=== PATIENT | male | born 1960 | race Caucasian/White ===

== ENCOUNTER 2016-08-13 16:09 | Inpatient (IN) | payer BC ==
--- NOTE | ~2016-08-13 | DS ---
Discharge Summary [facility] [address] [facility] [place]. [address] NAME: LARS BYRD : 62 STATUS : DIS IN PAT#: [id number] AGE: 56 ADM/REG DATE : 08/13/16 MR#: [id number] REPORT SERV DATE: 08/19/16 DICTATED BY: DARIUS BRIGGS DATE: 08/18/16 REPORT STATUS : Draft TRANSCRIBED BY: MODL DATE: 08/18/16 ADMISSION DATE: 08/13/2016 DISCHARGE DATE: 08/18/2016 DISCHARGE DIAGNOSES: 1. Community-acquired pneumonia. 2. Acute hypoxic respiratory failure. 3. New-onset type 2 diabetes mellitus. 4. Hypertension. 5. Hyperlipidemia. 6. Tobacco abuse. CONSULTANTS DURING THIS HOSPITALIZATION: None. INVASIVE PROCEDURES DONE DURING THIS HOSPITALIZATION: None. BRIEF HISTORY OF PRESENT ILLNESS: The patient is a 56-year-old white male, presented with hypoxic respiratory failure and hypoxemia in the emergency room found to have pneumonia, so he was admitted. For detailed history and physical exam, please see note dictated by Dr. Milton Kendrick on 08/13/2016. HOSPITAL COURSE: After being admitted to the hospital, this patient was placed on antibiotics, steroids, and aggressive nebulizing treatments. Urine antigens for strep and Legionella were checked and blood cultures were done, which all remained negative. His procalcitonin level was slightly elevated. He did have an elevated white count on admission of about 26,000. We continued to monitor him, he had a slightly elevated troponin of 0.09 which has since come down to 0.07. This was thought due to demand ischemia and high oxygen requirement. He was noted to have an elevated glucose, so a hemoglobin A1c was checked which showed that he had type 2 diabetes mellitus and hemoglobin A1c was 8.9. informal waiter/waitress saw the patient in consultation during this hospitalization as well. Since he continued to improve, we started to wean his oxygen and in 5 days his oxygen has been weaned off. He is saturating 95% on room air. The patient feels well. He still has complaints of some right-sided chest pain that is attributed to pleuritic chest pain which responds to pain medications. He is fully ambulatory at this time and doing well enough that he could be discharged in the home setting. DISCHARGE DISPOSITION: Home. DISCHARGE ACTIVITY: No heavy lifting and no outside work, prevent exposure to pollen and dust at this time. DISCHARGE DIET: 1800-calorie [employer] diet. DISCHARGE MEDICATIONS: Omnicef 300 mg p.o. once daily, Hugoton 5/325 one tablet every six hours p.r.n. for pleuritic type chest pain, Symbicort 160/4.25 two puffs twice daily, prednisone 10 mg p.o. daily for two more days, metformin 500 mg twice daily, Plavix 75 mg Discharge Summary [address] [address] NAME: LARS BYRD : 62 STATUS : DIS IN PAT#: [id number] AGE: 56 ADM/REG DATE : 08/13/16 MR#: [id number] REPORT SERV DATE: 08/19/16 DICTATED BY: DARIUS BRIGGS DATE: 08/18/16 REPORT STATUS : Draft TRANSCRIBED BY: CHELI DATE: 08/18/16 once daily, hydrochlorothiazide 25 mg once at bedtime, Lopressor 25 mg once at bedtime, Protonix 20 mg once at bedtime, pravastatin 40 mg once daily, ramipril 5 mg once at bedtime, ProAir two puffs every four hours p.r.n., Tylenol 1000 mg twice daily p.r.n., Flexeril 10 mg three times daily p.r.n. DISCHARGE FOLLOWUP: With Dr. Cheatham in [place], [place]. More than 30 minutes spent planning this patient's discharge, reconciling medications, writing prescriptions, discussing hospital care, and followup with the patient and documenting this discharge. ADDENDUM: This patient since had a slightly elevated troponin. Once he completely recovers from his pneumonia, a nuclear cardiac stress test is advised in the outpatient setting. NATALIE/CHELI Darius Briggs M.D. / [id number] CC: Darius Briggs M.D.
--- NOTE | ~2016-08-13 | HP ---
History And Physical [place] [id number] [facility]. [address] NAME: LARS BYRD : 62 STATUS : ADM IN PAT#: [id number] AGE: 56 ADM/REG DATE : 08/13/16 MR#: [id number] REPORT SERV DATE: 08/14/16 DICTATED BY: MILTON KENDRICK DATE: 08/13/16 REPORT STATUS : Draft TRANSCRIBED BY: MODL DATE: 08/13/16 DATE OF ADMISSION: 08/13/2016 CHIEF COMPLAINT: Cough and chest pain. HISTORY OF PRESENT ILLNESS: This is a 56-year-old gentleman with history of hypertension, coronary artery disease, smoking and COPD presenting with cough and chest pain. The patient apparently has been having cough with right-sided chest pain for about a week. The cough itself was nonproductive. The patient did not have any fevers or chills, but he did develop worsening shortness of breath. 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 Apparently, at the [place] ER everything looked okay and the patient was discharged home, with a diagnosis of pulled muscle. The patient then saw his PCP today, and the patient was immediately directed to the ER, because he did not look good. In the ER, patient was found to be quite tachycardic, with heart rate of 126. The patient was also quite hypoxic, with oxygen saturation of 82% on room air, on initial presentation. Initial lab evaluation revealed benign electrolytes, but his white blood cell count was 26.7, with 4% bands. His ABG confirmed the hypoxic respiratory failure on room air. Chest x-ray revealed basilar infiltrates which was again confirmed with a CT angiogram of the chest. Internal Medicine consultation was requested for admission of the patient for further evaluation and care. REVIEW OF SYSTEMS: The patient denies any fevers or chills. Also, 14-point review of systems reviewed and negative other than mentioned above. MEDICATIONS: 1. Tylenol 6657-0875 mg p.o. b.i.d. for pain. 2. ProAir two puffs inhaled q.4h p.r.n. 3. Z-Case. 4. Plavix 75 mg p.o. at bedtime. 5. Flexeril 10 mg p.o. three times daily p.r.n. 6. Hydrochlorothiazide 25 mg p.o. at bedtime. 7. [place] 5/325 one tab p.o. q.6 hours p.r.n. 8. Lopressor 25 mg p.o. at bedtime. 9. Protonix 20 mg p.o. at bedtime. 10.Pravachol 40 mg p.o. at bedtime. 11.Altace 5 mg p.o. at bedtime. 12.Tussionex 5 mL p.o. q.12 hours p.r.n. ALLERGIES: 1. AMOXICILLIN. 2. NSAIDS. History And Physical [address] [address] NAME: LARS BYRD : 62 STATUS : ADM IN [facility]#: [id number] AGE: 56 ADM/REG DATE : 08/13/16 MR#: [id number] REPORT SERV DATE: 08/14/16 DICTATED BY: MILTON KENDRICK DATE: 08/13/16 REPORT STATUS : Draft TRANSCRIBED BY: CHELI DATE: 08/13/16 PAST MEDICAL HISTORY: 1. Hypertension. 2. Coronary artery disease with a heart attack in the past and one coronary artery stent. 3. COPD. PAST SURGICAL HISTORY: 1. Cholecystectomy. 2. Appendectomy. FAMILY HISTORY: 1. The patient's father had unknown type cancer. 2. The patient's mother and brothers had CVAs. SOCIAL HISTORY: The patient is a smoker. He smokes about two packs per day. The patient otherwise does not drink alcohol or use any illicit drugs. The patient is here in the ER, accompanied by his girlfriend. PHYSICAL EXAMINATION: VITAL SIGNS: Temperature 99.3, blood pressure 141/76, pulse 126 respiratory rate is 20, and saturating greater than 95%, now on 15 L of oxygen high flow. NEUROLOGICAL: The patient is alert, but slightly lethargic. The patient has no focal neurologic deficits. GENERAL: The patient is awake, does not appear to be in acute distress, and he is cooperative. NECK: No JVD. No lymphadenopathy. Normal thyroid. CHEST: No midline sternotomy scar and no tenderness to palpation. LUNGS: The patient has diffuse rhonchi as well as wheezes. The patient is on 15 L of oxygen per high-flow nasal cannula and he has normal respiratory effort with that. CARDIOVASCULAR: The patient is quite tachycardic, but otherwise, no murmurs, rubs, or gallops, and PMI is nondisplaced. ABDOMEN: Soft, nontender, with active bowel sounds and no organomegaly. EXTREMITIES: No edema. Normal distal pulses. No calf tenderness. SKIN: Clean, dry, warm, and intact. LABORATORY DATA: Sodium is 137, potassium 4.1, chloride 97, BUN 14, creatinine 1.05 glucose 216, calcium 8.4, magnesium 1.8. White blood cell count is 26.7, with 4% bands. Hemoglobin 14.6, platelets 232, INR is 1.0, lactate is 1.3, troponin is 0.09. ABG; pH is 7.35, pCO2 62, PO2 44 and oxygen saturation of 82% on room air. Chest x-ray is personally interpreted and it shows bibasilar infiltrates. CT angiogram showed multifocal pneumonia bilaterally. Procalcitonin level was 0.36. ASSESSMENT: This is a 56-year-old gentleman with history of hypertension, COPD, coronary artery disease, and smoking presenting with a community-acquired pneumonia with sepsis. History And Physical [address] [address] NAME: LARS BYRD : 62 STATUS : ADM IN [facility]#: [id number] AGE: 56 ADM/REG DATE : 08/13/16 MR#: [id number] REPORT SERV DATE: 08/14/16 DICTATED BY: MILTON KENDRICK DATE: 08/13/16 REPORT STATUS : Draft TRANSCRIBED BY: MODReji DATE: 08/13/16 1. Community-acquired pneumonia with sepsis. 2. Acute hypoxic respiratory failure secondary to above. 3. Smoking. 4. Baseline chronic obstructive pulmonary disease. 5. Hypertension. 6. Coronary artery disease. PLAN: My plan is to admit the patient under telemetry monitoring. The patient will be given oxygen support and bronchodilator therapy. The patient will be treated with IV antibiotics and steroids. I will follow CBC with diff, procalcitonin level, as well as checking urinary antigen and for strep and Legionella. I will also check blood cultures, and sputum cultures. Otherwise, for the rest of stable past medical conditions, including hypertension, coronary disease, I will continue home medications. For smoking cessation, counseling was provided. Standard DVT prophylaxis. The patient is full code at this time. YSC/MODL Milton Kendrick MD / [id number]
[2016-08-13 16:07] LABS: BE (BASE EXCESS) 5.5 MEQ/L (0 +/- 2.5); CARBOXYHEMOGLOBIN 7.3 % (0-3); HCO3 (ACTUAL BICARBONATE) 33.3 MEQ/L (23-27); HEMOBLOGIN CONTENT 15.1 G/DL (14-18); INSTRUMENT SERIAL # 8087; METHEMOGLOBIN 0.3 % (0-3); PCO2 (CO2 TENSION) 62 MMHG (35-45); PO2 (O2 TENSION) 44 MMHG (79-93); SAMPLE Arterial; pH 7.35 (7.37-7.43)
[2016-08-13 16:08] LABS: ALLENS TEST Pos
[~2016-08-13 16:09] MED LIST: ALTA5 PO; DURA100 TOP; HCTZ25B PO; IMDUR30 PO; ISORDIL10; NITROSTAT0.4 MG SL; PERCOCET1 TA4 PO; PLAVIX PO; PRAVACHOL40 MG PO; PROAIR HFA INH; PROTONIX PO; TOPXL25 PO; VIAGRA50 MG PO
[2016-08-13] MEDS ORDERED: HYDROCHLOROT25 MG PO (16:18)
[2016-08-13] MEDS ORDERED: PRAVACHOL40 MG PO (16:18)
[2016-08-13] MEDS ORDERED: PLAVIX PO (16:18)
[2016-08-13] MEDS ORDERED: ALTA5 PO (16:19)
[2016-08-13] MEDS ORDERED: LOP25 PO (16:19)
[2016-08-13] MEDS ORDERED: ACET500CAP PO (16:20)
[2016-08-13] MEDS ORDERED: PROAIR HFA INH (16:20)
[2016-08-13] MEDS ORDERED: PROTONIX20 MG PO (16:20)
[2016-08-13] MEDS ORDERED: Z-PAK PO (16:20)
[2016-08-13] MEDS ORDERED: FLEX PO (16:28)
[2016-08-13] MEDS ORDERED: NORCO1 TA1 PO (16:28)
[2016-08-13] MEDS ORDERED: TUSSINEX PO (16:29)
[2016-08-13 17:13] LABS: BASOPHILS 0.1 %; BASOPHILS ABSOLUTE 0.02 10/3/uL (0.0-0.16); EOSINOPHILS 0 %; EOSINOPHILS ABSOLUTE 0.01 10/3/uL (0.0-0.53); HEMATOCRIT 43.1 % (40.0-51.0); HEMOGLOBIN 14.6 g/dL (13.6-17.8); IMMATURE GRANULOCYTES 0.5 %; LYMPHOCYTES 7.7 %; LYMPHOCYTES ABSOLUTE 2.04 10/3/uL (0.67-4.30); MEAN CORPUS HGB CONC 33.9 g/dL (32.0-36.0); MEAN CORPUSCULAR HEMOGLOB 31.1 pg (26.0-34.0); MEAN CORPUSCULAR VOLUME 91.7 fL (80-100); MEAN PLATELET VOLUME 9.9 fL (9.2-13.0); MONOCYTES 8.2 %; MONOCYTES ABSOLUTE 2.19 10/3/uL (0.21-1.20); NEUTROPHILS 83.5 %; NEUTROPHILS ABSOLUTE 22.28 10/3/uL (2.02-8.40); PLATELET COUNT 232 10/3/uL (150-400); RBC DISTRIBUTION WIDTH 12.8 % (12.0-16.0)
[2016-08-13 17:14] LABS: ER CBC TAT 0 Hrs 07 Mins; WHITE BLOOD CELLS 26.7 10/3/uL (4.5-10.5)
[2016-08-13 17:16] LABS: IMMATURE GRANULOCYTES ABSOLUTE 0.12 10/3/uL (0.0-0.11); MANUAL DIFF NO %
[2016-08-13 17:20] LABS: PARTIAL THROMBO TIME 24.6 SEC (22.5-37.2); PROTIME (NOT ORD) 12.7 SEC (12.0-14.5)
[2016-08-13 17:30] LABS: CALCIUM, SERUM 8.4 MG/DL (8.5-10.4); CHLORIDE, SERUM 97 MMOL/L (96-112); CO2 (CARBON DIOXIDE) 34 MMOL/L (24-34); CREATININE 1.05 MG/DL (0.70-1.30); GFR AFRICAN AMERICAN 92 ML/MIN (>=60); GFR NON AFRICAN AMERICAN 80 ML/MIN (>=60); LACTATE 1.3 MMOL/L (0.3-2.4); POTASSIUM, SERUM 4.1 MMOL/L (3.5-5.3); SODIUM, SERUM 137 MMOL/L (135-148)
[2016-08-13 17:31] LABS: BUN (BLOOD UREA NITROGEN) 14 MG/DL (6-23); CHEST PAIN PROFILE TAT 0 Hrs 24 Mins; GLUCOSE, SERUM 216 MG/DL (60-99); TROPONIN I 0.09 NG/ML (<0.05)
[2016-08-13 17:38] LABS: BAND NEUTROPHILS 4 %; ER DIFF TAT 0 Hrs 31 Mins; LYMPHOCYTES 9 %; MONOCYTES 8 %; MONOCYTES ABSOLUTE (CALC) 2.14 10/3/uL (0.21-1.20); NEUTROPHILS ABSOLUTE (CALC) 22.16 10/3/uL (2.02-8.40); SEGMENTED NEUTROPHIL (0) 79 %; TOTAL NUCLEATED CELLS 100
[2016-08-13 17:39] LABS: PLATELET ESTIMATE ADQ (ADEQUATE); RBC MORPHOLOGY NORM (NORMAL)
[2016-08-13 18:21] LABS: PROCALCITONIN 0.36 ng/mL (<0.5)
[2016-08-14 06:10] LABS: HEMATOCRIT 39.6 % (40.0-51.0); MEAN CORPUS HGB CONC 32.8 g/dL (32.0-36.0); MEAN CORPUSCULAR HEMOGLOB 29.5 pg (26.0-34.0); MEAN CORPUSCULAR VOLUME 89.8 fL (80-100); PLATELET COUNT 211 10/3/uL (150-400); RBC DISTRIBUTION WIDTH 13.1 % (12.0-16.0); RED CELL COUNT 4.41 10/6/uL (4.7-6.1); WHITE BLOOD CELLS 24.9 10/3/uL (4.5-10.5)
[2016-08-14 06:18] LABS: BUN (BLOOD UREA NITROGEN) 16 MG/DL (6-23); CALCIUM, SERUM 8.5 MG/DL (8.5-10.4); CHLORIDE, SERUM 97 MMOL/L (96-112); CO2 (CARBON DIOXIDE) 32 MMOL/L (24-34); CREATININE 0.98 MG/DL (0.70-1.30); GFR AFRICAN AMERICAN 100 ML/MIN (>=60); GFR NON AFRICAN AMERICAN 86 ML/MIN (>=60); GLUCOSE, SERUM 224 MG/DL (60-99); MANUAL DIFF YES %; POTASSIUM, SERUM 4.5 MMOL/L (3.5-5.3); SODIUM, SERUM 135 MMOL/L (135-148)
[2016-08-14 06:19] LABS: TROPONIN I 0.07 NG/ML (<0.05)
[2016-08-14 07:17] LABS: BAND NEUTROPHILS 2 %; LYMPHOCYTES 5 %; LYMPHOCYTES ABSOLUTE (CALC) 1.25 10/3/uL (0.67-4.30); MONOCYTES 2 %; NEUTROPHILS ABSOLUTE (CALC) 23.16 10/3/uL (2.02-8.40); SEGMENTED NEUTROPHIL (0) 91 %; TOTAL NUCLEATED CELLS 100
[2016-08-14 07:18] LABS: PLATELET ESTIMATE ADQ (ADEQUATE); RBC MORPHOLOGY NORM (NORMAL)
[2016-08-14 08:34] LABS: ASCORBIC ACID (UR NOT ORDER) NEG (NEG); BILIRUBIN, URINE NEGATIVE (NEG); KETONE, URINE NEGATIVE (NEG); LEUKOCYTE ESTERASE(NOT OR NEG (NEG); WBC (NOT ORDERED) (RFLEX) < 1 (0-5)
[2016-08-15 04:55] LABS: BUN (BLOOD UREA NITROGEN) 16 MG/DL (6-23); CALCIUM, SERUM 8.5 MG/DL (8.5-10.4); CHLORIDE, SERUM 96 MMOL/L (96-112); CO2 (CARBON DIOXIDE) 34 MMOL/L (24-34); CREATININE 0.86 MG/DL (0.70-1.30); GFR AFRICAN AMERICAN 113 ML/MIN (>=60); GFR NON AFRICAN AMERICAN 98 ML/MIN (>=60); PHOSPHORUS, SERUM 3.2 MG/DL (2.5-4.5); POTASSIUM, SERUM 3.8 MMOL/L (3.5-5.3); SODIUM, SERUM 137 MMOL/L (135-148)
[2016-08-15 05:03] LABS: ALBUMIN 2.9 G/DL (3.5-5.0); GLUCOSE, SERUM 160 MG/DL (60-99)
[2016-08-15 05:17] LABS: BASOPHILS 0.1 %; BASOPHILS ABSOLUTE 0.02 10/3/uL (0.0-0.16); EOSINOPHILS 0.1 %; EOSINOPHILS ABSOLUTE 0.02 10/3/uL (0.0-0.53); HEMATOCRIT 40.4 % (40.0-51.0); IMMATURE GRANULOCYTES 0.3 %; IMMATURE GRANULOCYTES ABSOLUTE 0.05 10/3/uL (0.0-0.11); LYMPHOCYTES 21.6 %; LYMPHOCYTES ABSOLUTE 4.11 10/3/uL (0.67-4.30); MEAN CORPUS HGB CONC 32.2 g/dL (32.0-36.0); MEAN CORPUSCULAR HEMOGLOB 30.1 pg (26.0-34.0); MEAN PLATELET VOLUME 10.1 fL (9.2-13.0); MONOCYTES 8.4 %; NEUTROPHILS 69.5 %; NEUTROPHILS ABSOLUTE 13.23 10/3/uL (2.02-8.40); PLATELET COUNT 201 10/3/uL (150-400); RED CELL COUNT 4.32 10/6/uL (4.7-6.1)
[2016-08-15 05:29] LABS: MANUAL DIFF NO %; MEAN CORPUSCULAR VOLUME 93.5 fL (80-100)
[2016-08-16 05:38] LABS: BASOPHILS 0.2 %; BASOPHILS ABSOLUTE 0.02 10/3/uL (0.0-0.16); EOSINOPHILS 0.7 %; EOSINOPHILS ABSOLUTE 0.09 10/3/uL (0.0-0.53); HEMATOCRIT 39.2 % (40.0-51.0); IMMATURE GRANULOCYTES 0.4 %; IMMATURE GRANULOCYTES ABSOLUTE 0.05 10/3/uL (0.0-0.11); LYMPHOCYTES 26.7 %; LYMPHOCYTES ABSOLUTE 3.38 10/3/uL (0.67-4.30); MANUAL DIFF NO %; MEAN CORPUS HGB CONC 33.2 g/dL (32.0-36.0); MEAN CORPUSCULAR HEMOGLOB 30.6 pg (26.0-34.0); MEAN CORPUSCULAR VOLUME 92.2 fL (80-100); MEAN PLATELET VOLUME 9.9 fL (9.2-13.0); MONOCYTES 9.1 %; MONOCYTES ABSOLUTE 1.15 10/3/uL (0.21-1.20); NEUTROPHILS 62.9 %; NEUTROPHILS ABSOLUTE 7.95 10/3/uL (2.02-8.40); PLATELET COUNT 215 10/3/uL (150-400); RBC DISTRIBUTION WIDTH 12.9 % (12.0-16.0); RED CELL COUNT 4.25 10/6/uL (4.7-6.1); WHITE BLOOD CELLS 12.6 10/3/uL (4.5-10.5)
[2016-08-16 05:47] LABS: ALBUMIN 2.9 G/DL (3.5-5.0); BUN (BLOOD UREA NITROGEN) 14 MG/DL (6-23); CALCIUM, SERUM 8.4 MG/DL (8.5-10.4); CHLORIDE, SERUM 97 MMOL/L (96-112); CO2 (CARBON DIOXIDE) 33 MMOL/L (24-34); CREATININE 0.76 MG/DL (0.70-1.30); GFR AFRICAN AMERICAN 119 ML/MIN (>=60); GFR NON AFRICAN AMERICAN 103 ML/MIN (>=60); GLUCOSE, SERUM 177 MG/DL (60-99); PHOSPHORUS, SERUM 3.6 MG/DL (2.5-4.5); POTASSIUM, SERUM 3.7 MMOL/L (3.5-5.3); SODIUM, SERUM 138 MMOL/L (135-148)
[2016-08-17 06:52] LABS: BASOPHILS 0.2 %; BASOPHILS ABSOLUTE 0.02 10/3/uL (0.0-0.16); EOSINOPHILS 0.9 %; EOSINOPHILS ABSOLUTE 0.11 10/3/uL (0.0-0.53); HEMOGLOBIN 14.3 g/dL (13.6-17.8); IMMATURE GRANULOCYTES 0.3 %; IMMATURE GRANULOCYTES ABSOLUTE 0.04 10/3/uL (0.0-0.11); LYMPHOCYTES 28.6 %; MEAN CORPUS HGB CONC 33.1 g/dL (32.0-36.0); MEAN CORPUSCULAR HEMOGLOB 30.2 pg (26.0-34.0); MEAN CORPUSCULAR VOLUME 91.3 fL (80-100); MONOCYTES ABSOLUTE 1.22 10/3/uL (0.21-1.20); NEUTROPHILS ABSOLUTE 7.34 10/3/uL (2.02-8.40); PLATELET COUNT 253 10/3/uL (150-400); RBC DISTRIBUTION WIDTH 12.7 % (12.0-16.0); RED CELL COUNT 4.73 10/6/uL (4.7-6.1); WHITE BLOOD CELLS 12.2 10/3/uL (4.5-10.5)
[2016-08-17 06:53] LABS: HEMATOCRIT 43.2 % (40.0-51.0); MANUAL DIFF NO %
[2016-08-17 07:04] LABS: ALBUMIN 3.1 G/DL (3.5-5.0); BUN (BLOOD UREA NITROGEN) 14 MG/DL (6-23); CALCIUM, SERUM 9.2 MG/DL (8.5-10.4); CHLORIDE, SERUM 96 MMOL/L (96-112); CO2 (CARBON DIOXIDE) 33 MMOL/L (24-34); CREATININE 0.83 MG/DL (0.70-1.30); GFR AFRICAN AMERICAN 115 ML/MIN (>=60); GFR NON AFRICAN AMERICAN 99 ML/MIN (>=60); GLUCOSE, SERUM 203 MG/DL (60-99); PHOSPHORUS, SERUM 3.9 MG/DL (2.5-4.5); POTASSIUM, SERUM 3.5 MMOL/L (3.5-5.3); SODIUM, SERUM 136 MMOL/L (135-148)
[2016-08-18 06:49] LABS: BASOPHILS 0.2 %; BASOPHILS ABSOLUTE 0.03 10/3/uL (0.0-0.16); EOSINOPHILS 0.8 %; EOSINOPHILS ABSOLUTE 0.11 10/3/uL (0.0-0.53); HEMATOCRIT 42.7 % (40.0-51.0); HEMOGLOBIN 14.5 g/dL (13.6-17.8); IMMATURE GRANULOCYTES 0.7 %; LYMPHOCYTES 27.3 %; LYMPHOCYTES ABSOLUTE 3.74 10/3/uL (0.67-4.30); MEAN CORPUSCULAR HEMOGLOB 30.1 pg (26.0-34.0); MEAN CORPUSCULAR VOLUME 88.6 fL (80-100); MEAN PLATELET VOLUME 9.5 fL (9.2-13.0); MONOCYTES 10.1 %; MONOCYTES ABSOLUTE 1.38 10/3/uL (0.21-1.20); NEUTROPHILS 60.9 %; NEUTROPHILS ABSOLUTE 8.35 10/3/uL (2.02-8.40); PLATELET COUNT 241 10/3/uL (150-400); RBC DISTRIBUTION WIDTH 12.8 % (12.0-16.0); RED CELL COUNT 4.82 10/6/uL (4.7-6.1); WHITE BLOOD CELLS 13.7 10/3/uL (4.5-10.5)
[2016-08-18 06:55] LABS: MANUAL DIFF NO %
[2016-08-18] MEDS ORDERED: GLUCPH PO (10:25)
[2016-08-18] MEDS ORDERED: P10 PO (10:27)
[2016-08-18] MEDS ORDERED: NORCO1 TA1 PO (10:28)
[2016-08-18] MEDS ORDERED: OMNICEF300 PO (10:29)
[2016-08-18] MEDS ORDERED: SYMBICORT 160/41 INH INH (10:29)
[2017-01-10] MEDS ORDERED: LOP25 PO (23:50)
[2017-01-10] MEDS ORDERED: PRAVACHOL40 MG PO (23:50)
[2017-01-10] MEDS ORDERED: HCTZ25B PO (23:50)
[2017-01-10] MEDS ORDERED: PLAVIX PO (23:50)
[2017-01-10] MEDS ORDERED: GLUCOPHAGE1000 MG PO (23:50)
[2017-01-10] MEDS ORDERED: VITAMIN D TABLET PO (23:51)
[2017-01-10] MEDS ORDERED: PROAIR HFA INH (23:51)
[2017-01-10] MEDS ORDERED: ALTA5 PO (23:51)
[2017-01-10] MEDS ORDERED: PROTONIX PO (23:51)
[2017-01-10] MEDS ORDERED: B121000P IM (23:52)
[2017-01-10] MEDS ORDERED: HABIT21 TOP (23:52)
[2017-01-10] MEDS ORDERED: TESTOSTERONE INJ IM (23:52)
== END 2016-08-18 11:58 | disposition home or self-care (01) | DRG 871 ==
LOC: ER 16:09 → 6NO 20:48
PROVIDERS: Hospitalist; Internal Medicine
DX: A41.9 Sepsis, unspecified organism (principal); J96.01 Acute respiratory failure with hypoxia; J18.1 Lobar pneumonia, unspecified organism; J44.0 Chronic obstructive pulmonary disease with (acute) lower respiratory infection; E11.9 Type 2 diabetes mellitus without complications; I10 Essential (primary) hypertension; I25.10 Atherosclerotic heart disease of native coronary artery without angina pectoris; E78.5 Hyperlipidemia, unspecified; F17.210 Nicotine dependence, cigarettes, uncomplicated; I25.2 Old myocardial infarction; J44.9 Chronic obstructive pulmonary disease, unspecified; Z79.02 Long term (current) use of antithrombotics/antiplatelets; Z88.0 Allergy status to penicillin; Z88.6 Allergy status to analgesic agent; Z90.49 Acquired absence of other specified parts of digestive tract; Z82.3 Family history of stroke
CPT/HCPCS: 36600; 71010; 71020; 71275; 80048; 80069; 81001; 82805; 82962; 83036; 83605; 83735; 84145; 84484; 85025; 85610; 85730; 86738; 87040; 87070; 87205; 87449; 90686; 93005; 94640; 94667; 94668; 96365; 96375; 99285; A9270-GY; G0008; J0456; J2920; J2930; Q9967